=== PATIENT | female | born 1965 | race African-American/Black ===

== ENCOUNTER → 2018-04-17 | Outpatient (CLI) | payer OTHER | LOC: M RAD 07:15 | DX: M79.671 Pain in right foot (principal); M79.672 Pain in left foot | CPT/HCPCS: 78315 ==

== ENCOUNTER → 2018-06-01 | Outpatient (CLI) | payer OTHER | LOC: M RAD 06:19 | DX: Z12.31 Encounter for screening mammogram for malignant neoplasm of breast (principal) | CPT/HCPCS: 77067 ==